=== PATIENT | male | born 1930 | race Caucasian/White ===

== ENCOUNTER 2018-06-16 06:27 | Day surgery (SDC) | payer MEDICARE, BC ==
[2018-06-14 16:59] LABS: BASOPHILS % (AUTO) 0.1 % (0-1); EOSINOPHILS # (AUTO) 0.2 X10'3 (0-0.9); EOSINOPHILS % (AUTO) 2.8 % (0-6); LYMPHOCYTES # (AUTO) 1.8 X10'3 (1.1-4.8); LYMPHOCYTES % (AUTO) 29.5 % (21-51); MEAN CORPUSCULAR HEMOGLOBIN 34.1 PG (27.0-31.0); MEAN CORPUSCULAR HGB CONC 34.1 g/dL (33.0-36.5); MEAN CORPUSCULAR VOLUME 99.8 FL (78-98); MEAN PLATELET VOLUME 7.9 FL (7.4-10.4); MONOCYTES # (AUTO) 0.8 X10'3 (0-0.9); MONOCYTES % (AUTO) 12.2 % (2-12); NEUTROPHILS # (AUTO) 3.5 X10'3 (1.8-7.7); NEUTROPHILS % (AUTO) 55.4 % (42-75); PRE OP HEMATOCRIT 41.4 % (42.0-52.0); PRE OP HEMOGLOBIN 14.1 g/dL (14.0-17.9); PRE OP PLATELET COUNT 259 X10'3 (140-440); RED BLOOD COUNT 4.15 X10'6 (4.70-6.10); RED CELL DISTRIBUTION WIDTH 13.4 % (11.5-14.5)
[2018-06-14 17:02] LABS: CLARITY,URINE CLEAR (Clear); COLOR,URINE YELLOW (Yellow); GLUCOSE, URINE NEGATIVE (Neg); KETONES,URINE TRACE mg/dl (Neg); LEUKOCYTE ESTERASE ,URINE NEGATIVE (Neg); NITRITES, URINE NEGATIVE (Neg); OCCULT BLOOD,URINE NEGATIVE (Neg); PH,URINE 5.5 (4.8-8.0); PROTEIN,URINE NEGATIVE (Neg); UROBILINOGEN,URINE 0.2 E.U/dL (0.2-1.0)
[2018-06-14 17:09] LABS: UA COLLECTION TYPE CLN CATCH MIDSTREAM
[2018-06-14 17:16] LABS: PRE OP INR 1.1 INR
[2018-06-14 17:17] LABS: ALBUMIN 3.7 G/DL (3.4-5.0); ALKALINE PHOSPHATASE 75 IU/L (46-116); BLOOD UREA NITROGEN 18 MG/DL (7-18); BUN/CREATININE RATIO 17.8 (5.4-32.0); CALCIUM 9.6 MG/DL (8.5-10.1); CHLORIDE 107 MMOL/L (99-107); CREATININE 1.01 MG/DL (0.60-1.10); PRE OP ALT 29 U/L (30-65); PRE OP ANION GAP 8 (8-16); PRE OP AST 27 U/L (10-37); PRE OP BILIRUB, TOTAL 1.2 MG/DL (0.0-1.0); PRE OP GLUCOSE 74 MG/DL (70-104); PRE OP SODIUM 143 MMOL/L (135-145); TOTAL CARBON DIOXIDE 28.1 MMOL/L (24-32); TOTAL PROTEIN 7.3 G/DL (6.4-8.2); eGFR 70 ML/MIN
[~2018-06-16] VITALS: Ht 172.7 cm; Wt 71.9 kg
[2018-06-16] VITALS (14 sets, daily range): BP systolic 105–144; BP diastolic 61–98
[~2018-06-16 06:27] MED LIST: APIX5TAB3 PO; ATOR40TA PO; DOCUMENT DATE & TIME OF BETA-BLOCKER PO ONE; LYR75C PO; PROP60CA6 PO; ceFAZolin 2gm in dextrose, iso 100 ML IV ONE; famotidine 20mg tablet PO ONE; ringers solution, lacted 1,000 ML IV SCH
[2018-06-16] MEDS ORDERED: ceFAZolin 1000mg inj ONE (06:46)
[2018-06-16] MEDS ORDERED: BUPIVAcaine/PF 2.5mg/ml (0.25%) 10ml vial ONE (06:46)
[2018-06-16] MEDS ORDERED: ringers solution, lacted 1,000 ML IV SCH (08:17)
[2018-06-16] MEDS ORDERED: ondansetron/PF 4mg/2ml inj IV PRN (08:20)
[2018-06-16] MEDS ORDERED: labetalol 20mg/4ml (5mg/ml) syringe IV PRN (08:20)
[2018-06-16] MEDS ORDERED: hydrALAZINE 20mg/ml inj. IV PRN (08:20)
[2018-06-16] MEDS ORDERED: morphine 4 MG/ML inj SYRINge IV PRN ×2 (08:20)
[2018-06-16] MEDS ORDERED: fentaNYL/PF 50MCG/1 ML 2ML syringe IV PRN ×2 (08:20)
[2018-06-16] MEDS ORDERED: midazolam 2 mg/2 ml injection ONE (08:33)
[2018-06-16] MEDS ORDERED: fentaNYL/PF 50MCG/1 ML 2ML syringe ONE (08:33)
[2018-06-16] MEDS ORDERED: propofol inj 20 ML IV ONE (08:34)
[2018-06-16] MEDS ORDERED: ondansetron/PF 4mg/2ml inj ONE (08:34)
[2018-06-16] MEDS ORDERED: dexamethasone sod phosphate 4mg/ml inj. ONE (08:34)
[2018-06-16] MEDS ORDERED: LIDOcaine 2% (20mg/ml) 5ml vial ONE (08:34)
[2018-06-16] MEDS ORDERED: neostigmine methylsulfate 1 MG/ML 10ml vial ONE (08:35)
[2018-06-16] MEDS ORDERED: rocuronium 10mg/ml inj IV ONE (08:35)
[2018-06-16] MEDS ORDERED: glycopyrrolate 0.2mg/ml inj ONE (08:35)
[2018-06-16] MEDS ORDERED: sevoflurane 250ml liquid IH ONE (08:39)
--- NOTE | 2018-06-16 10:19 | NUR ---
Received from OR via [facility], accompanied by Anesthesiologist DR MORENO and report given by Anesthesiolgist. PT VERY DROWSY, 2 LAP SITES W/JOSE F DING. Addendum: 06/16/18 at 1030 by Sharon Willams RN Amended: Links added.
[2018-06-16] MEDS ORDERED: HYDROcodone/acetaminophen 5mg/325mg tablet PO ONE (12:35)
== END 2018-06-16 12:29 | disposition home or self-care (01) ==
LOC: PAS 06:27
PROVIDERS: ATTEND Surgery
DX: K40.30 Unilateral inguinal hernia, with obstruction, without gangrene, not specified as recurrent (principal); K40.90 Unilateral inguinal hernia, without obstruction or gangrene, not specified as recurrent; G62.9 Polyneuropathy, unspecified; Z79.899 Other long term (current) drug therapy; Z72.89 Other problems related to lifestyle; I48.91 Unspecified atrial fibrillation; Z87.891 Personal history of nicotine dependence
CPT/HCPCS: 36415; 49650; 71046; 80053; 81003; 82948; 85025; 85610; 85730; 93005; A6258; C1781; J0690; J1100; J2001; J2250; J2405; J2704; J2710; J3010; J3490; J7120; A4315; C1713